=== PATIENT | male | born 2000 | race Caucasian/White ===

== ENCOUNTER 2022-07-08 07:59 | Emergency (ER) | payer OTHER, SELFPAY ==
[2022-07-08 08:07] VITALS: BP 145/88; PULSE 89; RESP 17; TEMP 36.4; O2SAT 97; BMI 25.1
--- NOTE | 2022-07-08 08:12 | DI.RAD.S_ITS ---
PROCEDURE: XR CHEST 2V INDICATIONS: chest pain TECHNIQUE: 2 views of the chest were acquired. COMPARISON: None. FINDINGS: Surgical changes and devices: Prior clavicular fixation hardware is noted. Lungs and pleura: Lungs are clear. No pleural effusions or pneumothorax. Mediastinum: Mediastinal contours are normal. Heart size is normal. Bones and chest wall: No suspicious bony abnormalities. Soft tissues appear unremarkable. IMPRESSION: No acute cardiopulmonary abnormality. Approved by: Beltran Flores M.D. on 07/08/2022 at 8:47
--- NOTE | 2022-07-08 08:19 | ED.CHESTPAIN ---
HPI - Chest Pain General Chief Complaint: Chest Pain Stated Complaint: Chest pain x1week Time Seen by Provider: 07/08/22 08:13 Source: patient Mode of arrival: Ambulatory History of Present Illness HPI narrative: Patient is a 21-year-old healthy male who presents with left-sided chest discomfort ongoing for about 1 week. He says it is definitely worse in certain positions that he can not always reproduce it with palpating. No fever chills. No real shortness of breath. His away seems to be on the left side. He has not been exercising he does work as an licensed aircraft maintenance engineer but is he says it is not intense of labor. The he does vape occasionally but does not typically smoke. No fever chills no sore throat or cough. He did take Tylenol last night which he says did not help. Review of Systems Review of Systems Narrative: GENERAL: Denies chills, fatigue, malaise, fever, sweats, travel HEENT: Denies sinus pain, ear pain, sore throat, difficulty swallowing, neck pain RESPIRATORY: Denies dyspnea, cough, wheezing, hemoptysis, sputum. CARDIOVASCULAR: See HPI GASTROINTESTINAL: Denies nausea, vomiting, abdominal pain, diarrhea, constipation, melena. : Denies dysuria, frequency, incontinence, hematuria, urinary retention, flank pain. MUSCULOSKELETAL: Denies weakness, joint pain, or bony pain SKIN: No rash, no erythema, no pruritus NEUROLOGIC: Denies weakness, dizziness, headache, numbness, change in speech, confusion PSYCHIATRIC: No concerning psychosocial issues. 12 point review of systems is negative except for those stated above and HPI Patient History Social History Smoking Status: Current some day smoker Smoking Status: Current some day smoker tobacco type: vaping alcohol intake frequency: 0-2 drinks per day Substance Use Type: does not use Exam Initial Vital Signs Initial Vital Signs: Vital Signs Temperature 97.6 F 07/08/22 08:07 Pulse Rate 89 07/08/22 08:07 Respiratory Rate 17 07/08/22 08:07 Blood Pressure 145/88 H 07/08/22 08:07 Pulse Oximetry 97 07/08/22 08:07 Oxygen Delivery Method 07/08/22 08:07 GENERAL: Alert well-appearing 21-year-old male and in no acute distress. HEENT: Head atraumatic,EOMI, pupils reactive, face symmetric, moist mucous membranes CARDIOVASCULAR: Regular rate and rhythm without murmurs, rubs or gallops. Pain definitely is not reproducible with palpation but he is able to present with certain movements. RESPIRATORY: Breath sounds equal bilaterally, no wheezes rales or rhonchi. ABDOMEN: Soft, nontender. Normoactive bowel sounds all 4 quadrants. No guarding or rebound. EXTREMITIES: Normal range of motion, no clubbing or edema. Neurovascularly intact NEUROLOGICAL: Alert and oriented x4. SKIN: Warm, dry, no laceration, no petechiae, no rashes or lesions. Course Orders Ordered: ED Orders 07/08/22 08:12 Chest [XR chest 2V] Stat 07/08/22 08:14 EKG-12 Lead Stat Discontinued Medications Ibuprofen (Ibuprofen 400 Mg Tablet) 800 mg PO NOW ONE Stop: 07/08/22 08:19 Last Admin: 07/08/22 08:53 Dose: 800 mg Documented By: LUNA Vital Signs Vital signs: Vital Signs - 8 hr 07/08/22 08:07 Temperature 97.6 F Pulse Rate 89 Respiratory Rate 17 Blood Pressure 145/88 H Pulse Oximetry 97 Oxygen Delivery Method Room Air MDM - Chest Pain ECG Data Interpretation: Normal sinus rhythm rate 76 MN interval 160 QRS 88 QTC 416 no [address] depression no ST-elevation no T-wave inversion MDM Narrative Medical decision making narrative: Patient's pain is definitely positional not necessarily reproducible. No sign of pericarditis on his EKG or exam. X-ray is negative. He is given ibuprofen here in the emergency department and is overall feeling slightly better. At this time I see no need for any further work up. Definite does not seem cardiac in nature. Discharge Plan Departure Patient Disposition: Home Clinical Impression: Chest wall muscle strain Instructions: Costochondritis Activity Restrictions/Additional Instructions: *You have been diagnosed with chest wall muscle strain *What to do: At this time it is likely musculoskeletal causing pain. May try ice or heat as needed. If it hurts to do something then stop. Increase activity as tolerated *Continue to take medications as directed Ibuprofen 600 mg every 6 hours if needed for [id number] pain Tylenol 1000 mg every 6 hours if needed for [id number] *Follow up with your primary care provider in 2-3 days or call [phone] *Return to ER if you should have increased chest pain shortness of breath dizziness lightheadedness fever or any new, worsening or concerning symptoms
[2022-07-08] MEDS: IBUPROFEN 400 MG TABLET 800 MG PO (08:53)
== END 2022-07-08 09:03 | disposition home or self-care (01) ==
PROVIDERS: Emergency Provider Emergency Medicine
DX: S29.011A Strain of muscle and tendon of front wall of thorax, initial encounter (principal)
CPT/HCPCS: 71046; 93005; 99283; 99284